=== PATIENT | female | born 1985 | race Caucasian/White ===

== ENCOUNTER 2017-06-10 12:35 | Emergency (ER) | payer MEDICAID, OTHER ==
--- NOTE | 2017-06-10 12:37 | EDPHY ---
H & P Time Seen by Provider: 06/10/17 12:36 - Medical/Surgical History Other PMH: fibromyalgia , anxiety , cranium was fused in back of head at Constitutional: Initial Vital Signs Temperature (C) 36.9 C 06/10/17 12:42 Heart Rate 112 H 06/10/17 12:42 Respiratory Rate 18 06/10/17 12:42 Blood Pressure 119/76 06/10/17 12:42 O2 Sat (%) 100 06/10/17 12:42 O2 Delivery Mode Room Air Allergies/Adverse Reactions: morphine [Morphine] Allergy (Mild, Verified 06/10/17 12:40) hydrocodone [Hydrocodone] Allergy (Verified 06/10/17 12:40) Home Medications: Medication Instructions Recorded Albuterol [Ventolin Hfa] 2 puffs IH PRN 08/18/11 Meclizine HCl [Meclizine HCl 25 mg 25 mg PO TID PRN #15 tab 09/25/13 (RX,OTC)] Oxycodone-Acetaminophen 5-325 06/10/17 oxyCODONE IR [Oxycodone Ir (*)] 5 - 10 mg PO Q6 PRN #30 tab 06/10/17 Medical Decision Making ED Course/Re-evaluation: CHIEF COMPLAINT: Spine pain HISTORY OF PRESENT ILLNESS: The patient is a 31 y/o female who complains of spinal pain since this morning. She has chronic back pain and anxiety. She notes that she stopped taking Effexor and Xanax two months ago. Her mother also threw away her Oxycodone prescription, so she has not taken it since yesterday. Her spinal pain radiates to the top of her legs. She also notes she is having a headache located in the occipital region. Denies recent spinal procedures, recent trauma, fever, chills or other pertinent symptoms. REVIEW OF SYSTEMS: A 10 point review of systems was performed and is negative with the exception of the elements mentioned in the history of present illness. PHYSICAL EXAM: HR, BP, O2 Sat, RR. Temp noted General Appearance: Anxious, alert, well hydrated, appropriate, and non-toxic appearing. Head: Atraumatic without scalp tenderness or obvious injury Eyes: Pupils equal, round, reactive to light and accommodation, EOMI, no trauma , no injection. Ears: Clear bilaterally, no perforation, normal landmarks Nose: Atraumatic, no rhinorrhea, clear. Throat: Mucus membranes moist. Neck: Supple, nontender, no lymphadenopathy. Respiratory: No retractions, no distress, no wheezes, and no accessory muscle use. Lungs are clear to auscultation bilaterally. Cardiovascular: Regular rate and rhythm, no murmurs, rubs, or gallops. Good capillary refill all extremities. Gastrointestinal: Abdomen is soft, nontender, non-distended, no masses, no rebound, no guarding, no peritoneal signs. Back: Diffuse tenderness to palpation. Musculoskeletal: Normal active ROM of all extremities, atraumatic. Neurological: Alert, appropriate, and interactive. The patient has normal DTRs and non-focal cranial nerves, motor, sensory, and cerebellar exam. Skin: No rashes, good turgor, no nodules on palpation. Past medical history: Anxiety, chronic back pain Past surgical history: Denies Family history: Noncontributory Social history: Mother at bedside, single, smoker DIFFERENTIAL DIAGNOSIS: The differential diagnosis for the patient's back pain included but was not limited to musculoskeletal pain, epidural abscess, herniated disk, spinal fracture, and intra-abdominal causes including urinary system. MEDICAL DECISION MAKING: The patient is a 31 y/o female who presents with diffuse spinal tenderness. She has chronic back pain, but her mother threw away her oxycodone prescription. She last used her oxycodone yesterday. The patient also has large breasts, which I suspect this could cause some of her back pain. She is currently rocking back and forth, so I do not believe she has a herniated disc. Plan on pain management. 1314: 10mg PO OxyIR administered Reassessed patient and discussed followup with a neurosurgeon and her primary care provider. Return precautions provided; patient is comfortable with this plan. - Data Points Medications Given: Discontinued Medications Ketorolac Tromethamine (Toradol) 30 mg IM EDNOW ONE Stop: 06/10/17 12:56 Last Admin: 06/10/17 13:01 Dose: 30 mg Oxycodone HCl (Oxycodone Ir) 10 mg PO EDNOW ONE Stop: 06/10/17 13:15 Last Admin: 06/10/17 13:16 Dose: 10 mg Departure - Departure Disposition: Home, Routine, Self-Care Clinical Impression: Spine pain, cervical, Spine pain, lumbar Back pain Qualifiers: Back pain location: back pain in other location Chronicity: chronic Qualified Code(s): M54.9 - Dorsalgia, unspecified Chronic back pain Qualifiers: Back pain location: low back pain Back pain laterality: midline Sciatica presence: with sciatica Sciatica laterality: bilateral sciatica Qualified Code(s ): M54.41 - Lumbago with sciatica, right side Condition: Good Instructions: Chronic Back Pain (ED), Back Pain (ED) Additional Instructions: 1. Take OxyIR as prescribed. 2. Followup with a neurosurgeon within one week, you have been referred to Dr. Bacon. 3. Consider a breast reduction to reduce your back pain. 4. Followup with your primary care provider in the next week to review your pain prescription medications. 5. Return to the emergency department for severe pain, fever, numbness, difficulty walking, change in location or nature of pain or other concerns. Referrals: Mario Bacon MD [Medical Doctor] - As per Instructions Prescriptions: oxyCODONE IR [Oxycodone Ir (*)] 5 - 10 mg PO Q6 PRN #30 tab PRN Reason: Pain, Severe Report Scribed for: Gian Rodriguez Report Scribed by: Jessie Rivera Date of Report: 06/10/17 Time of Report: 13:01
[2017-06-10] MEDS ORDERED: KETOROLAC 30 MG/1 ML SDV IM ONE (12:55)
[2017-06-10] MEDS ORDERED: OXYCODONE/APAP 5/325 TAB PO ONE (13:11)
[2017-06-10] MEDS ORDERED: oxyCODONE IR 5 MG TAB PO ONE (13:14)
[2017-06-10 13:23] VITALS: BP 111/79; PULSE 86; RESP 16; O2SAT 97
[2017-06-10 13:38] VITALS: TEMP 98.4
== END 2017-06-10 13:22 | disposition home or self-care (01) ==
LOC: CED 12:35
DX: M54.41 Lumbago with sciatica, right side (principal); G89.29 Other chronic pain; M54.2 Cervicalgia; F17.200 Nicotine dependence, unspecified, uncomplicated
CPT/HCPCS: J1885

== ENCOUNTER 2018-07-08 09:22 | Emergency (ER) | payer MEDICAID ==
--- NOTE | 2018-07-08 10:00 | EDPHY ---
H & P Time Seen by Provider: 07/08/18 09:55 HPI/ROS: Chief complaint. Dizziness HPI. Patient is a 32-year-old female presents with 3 weeks of intermittent dizziness. She tells me it comes and goes. She does have a history of vertigo. She also has pressure in her left ear and left cheek area. Sore throat began this morning. After blowing her nose and trying to clear her air she feels that she has some numbness sensation in the left jaw. She has had fevers to 99.8 degrees. No cough or shortness of breath. She has been using [id number] medication. ROS 10 systems were reviewed and negative with the exception of the elements mentioned in the history of present illness Past Medical/Surgical History: Past medical history significant for chronic back pain, fibromyalgia, anxiety, vestibular vertigo Social History: Single, daily smoker, no alcohol Smoking Status: Heavy smoker Physical Exam: General Appearance: Alert well-developed female mild distress vital signs are stable. Afebrile Eyes: Pupils equal and round no pallor or injection. ENT, tympanic membranes are not erythematous. Some fluid behind the left tympanic membrane. Pharynx mildly injected without exudate. No evidence for peritonsillar abscess. No obvious swelling to the left face. Some tenderness or fullness to palpation of the left frontal sinus Respiratory: There are no retractions, lungs are clear to auscultation. Cardiovascular: Regular rate and rhythm. Gastrointestinal: Abdomen is soft and nontender, no masses, bowel sounds normal. Neurological: Awake and alert, sensory and motor exams grossly normal. Cranial nerves are intact. Sensation is symmetrical to the skin on both sides of her face. She tells me that the numbness feels deeper in along the left jaw. Skin: Warm and dry, no rashes. Musculoskeletal: Neck is supple nontender. Extremities symmetrical, full range of motion. Psychiatric: Patient is oriented X 3, there is no agitation. Constitutional: Initial Vital Signs Temperature (C) 36.9 C 07/08/18 09:36 Heart Rate 84 07/08/18 09:36 Respiratory Rate 16 07/08/18 09:36 Blood Pressure 132/83 H 07/08/18 09:36 O2 Sat (%) 97 07/08/18 09:36 O2 Delivery Mode Room Air Allergies/Adverse Reactions: No Known Allergies Allergy (Verified 07/08/18 09:34) Home Medications: Medication Instructions Recorded Albuterol [Ventolin Hfa] 2 puffs IH PRN PRN 08/18/11 oxyCODONE IR [Oxycodone Ir (*)] 5 - 10 mg PO Q6 PRN #30 tab 06/10/17 ALPRAZolam [Alprazolam] 0.5 mg PO TID PRN #10 tablet 04/28/18 Lamictal 04/28/18 Xanax PRN 04/28/18 Fluticasone Nasal [Flonase Nasal 2 sprays NASAL DAILY #1 mdi 07/08/18 [place] (RX)] Meclizine HCl [Motion-Time] 25 mg PO Q4-6PRN PRN #14 tab.chew 07/08/18 Medical Decision Making Procedures: Rapid strep screen is negative ED Course/Re-evaluation: On re-evaluation the patient is stable. She and I discussed laboratory evaluation, treatment plan including criteria for return and importance of follow-up and further evaluation. She expresses understanding and agreement Differential Diagnosis: I think this is viral syndrome. She has fullness to the left sinus and left ear with evidence of some fluid behind the left tympanic membrane. No evidence for infection including sinus infection or strep or otitis media. Likely some of this fullness is causing vertigo which she has had before. I do not think there is an intracranial processed and no emergent imaging is indicated. Plan is symptomatic care and referral to ENT Departure - Departure Disposition: Home, Routine, Self-Care Clinical Impression: Vertigo, Acute upper respiratory infection Condition: Good Instructions: Vertigo (ED), Upper Respiratory Infection (ED) Additional Instructions: Meclizine as needed for dizziness Flonase nasal spray as directed Vaporizer or humidifier. Tylenol and ibuprofen for fever Return for worsening symptoms. Follow up with your ENT physician and I will give you the name of the on-call ENT physician for follow-up in 2-3 days if not improving Referrals: NONE *PRIMARY CARE P,. [Primary Care Provider] - As per Instructions Mario Trinidad MD [Medical Doctor] - 2-3 days, if not improved Prescriptions: Fluticasone Nasal [Flonase Nasal [place] (RX)] 2 sprays NASAL DAILY #1 mdi Meclizine HCl [Motion-Time] 25 mg PO Q4-6PRN PRN #14 tab.chew PRN Reason: Dizziness
[2018-07-08 10:59] VITALS: BP 128/82
== END 2018-07-08 10:56 | disposition home or self-care (01) ==
LOC: CED 09:22
DX: R42 Dizziness and giddiness (principal); R07.0 Pain in throat; F17.200 Nicotine dependence, unspecified, uncomplicated

== ENCOUNTER 2019-02-17 13:10 | Emergency (ER) | payer MEDICAID ==
[2019-02-17 13:24] VITALS: BP 109/69
[2019-02-17] MEDS ORDERED: IBUPROFEN 600 MG TAB PO ONE (13:40)
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
== END 2019-02-17 14:05 | disposition home or self-care (01) ==
LOC: CED 13:10
DX: S40.012A Contusion of left shoulder, initial encounter (principal); R07.81 Pleurodynia; Y04.8XXA Assault by other bodily force, initial encounter
CPT/HCPCS: 99283-ER